=== PATIENT | male | born 1980 | race Asian ===

== ENCOUNTER 2016-09-08 23:04 | Emergency (ER) | payer SELFPAY ==
[2016-09-08 23:04] VITALS: BP 0/0
[~2016-09-08 23:04] MED LIST: CALCIUM CHLOR(10%) 100MG/ML 10ML SYRINGE IV ONE; EPINEPHrine HCL 1 MG/10 ML SYRG IV ONE
== END 2016-09-08 23:22 | disposition expired ==
LOC: EDBD 23:06 → ER 23:06
DX: I46.9 Cardiac arrest, cause unspecified (principal)
CPT/HCPCS: 82962; 99285; J0171